=== PATIENT | female | born 1980 | race Asian ===

== ENCOUNTER → 2021-04-08 | Outpatient (CLI) | payer BC ==
[2006-01-03 07:15] VITALS: TEMP 98.1
[~2021-04-08] MED LIST: PRENATAL1 TA1 PO
== END ==
LOC: MC.RAD 13:45
DX: Z12.31 Encounter for screening mammogram for malignant neoplasm of breast (principal)

== ENCOUNTER → 2023-08-28 | Outpatient (CLI) | payer BC ==
[2006-01-03 07:15] VITALS: BP 107/64; PULSE 80; TEMP 98.1
== END ==
LOC: MC.RAD 07:29
DX: Z12.31 Encounter for screening mammogram for malignant neoplasm of breast (principal); N64.89 Other specified disorders of breast

== ENCOUNTER → 2023-08-30 | Outpatient (CLI) | payer BC ==
[2006-01-03 07:15] VITALS: BP 107/64; PULSE 80; TEMP 98.1
== END ==
LOC: MC.RAD 13:58
DX: Z12.31 Encounter for screening mammogram for malignant neoplasm of breast (principal)